=== PATIENT | male | born 2005 | race Caucasian/White ===

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

== ENCOUNTER 2024-01-07 05:15 | Emergency (ER) | payer OTHER, SELFPAY ==
[2024-01-07] MEDS ORDERED: Ketorolac Tromethamine 30 MG (1 mL) VIAL ONE (05:40)
[2024-01-07 05:51] LABS: #Basophils 0.04 10x3/uL (0.0-0.2); %Basophils 0.5 % (0.0-1.0); %Eosinophils 8.1 % (0.0-10.0); %Lymphocytes 35.2 % (28.0-48.0); %Monocytes 9.2 % (0.0-4.0); %Neutrophils 46.6 % (31.0-61.0); Hematocrit 44.5 % (42.0-52.0); Hemoglobin 15.4 g/dL (14.0-18.0); Mean Corpuscular HGB CONC 34.6 g/dL (32.0-36.0); Mean Corpuscular Hemoglobin 32.4 pg (25.0-35.0); Mean Corpuscular Volume 93.7 fL (78.0-98.0); Mean Platelet Volume 10.3 fL (7.4-10.4); Platelet Count 221 10x3/uL (130-400); Red Blood Cell (RBC) Count 4.75 mill/uL (4.00-5.20)
[2024-01-07 06:20] LABS: ALT (SGPT) 9 U/L (8-55); AST (SGOT) 15 U/L (10-45); Alkaline Phosphatase 86 U/L (50-130); Anion Gap 10 mmol/L (10-20); BUN (Urea Nitrogen) 17 mg/dL (8.4-21.0); Bilirubin, Total 0.5 mg/dL (0.2-1.2); CK (CPK) 102 U/L (30-200); Calc. Creatinine Clearance 0 mL/min (70-130); Calcium 9.6 mg/dL (7.8-10.44); Carbon Dioxide 28 mmol/L (22-29); Chloride 106 mmol/L (98-107); Estimated GFR 105; Globulin 2.8 g/dL (2.4-3.5); Glucose 86 mg/dL (70-105); Potassium 3.8 mmol/L (3.5-5.1); Protein, Total 6.8 g/dL (6.0-8.3); Sodium 140 mmol/L (136-145)
== END 2024-01-07 06:42 | disposition home or self-care (01) ==
LOC: ERS 05:15
DX: E86.0 Dehydration (principal); M79.10 Myalgia, unspecified site; F17.290 Nicotine dependence, other tobacco product, uncomplicated
CPT/HCPCS: 80053; 82550; 85025; 96374; J1885

== ENCOUNTER 2024-02-06 08:59 | Emergency (ER) | payer SELFPAY | END 2024-02-06 10:53 | disposition home or self-care (01) | LOC: ERS 08:59 | DX: S60.131A Contusion of right middle finger with damage to nail, initial encounter (principal); F17.290 Nicotine dependence, other tobacco product, uncomplicated; X58.XXXA Exposure to other specified factors, initial encounter | CPT/HCPCS: 99283 ==

== ENCOUNTER 2025-01-04 09:23 | Emergency (ER) | payer OTHER, SELFPAY | END 2025-01-04 10:49 | disposition home or self-care (01) | LOC: ERS 09:23 | DX: J06.9 Acute upper respiratory infection, unspecified (principal); F17.290 Nicotine dependence, other tobacco product, uncomplicated | CPT/HCPCS: 87428; 99283 ==